=== PATIENT | female | born 2000 | race Caucasian/White ===

== ENCOUNTER → 2018-05-05 09:34 | Outpatient (CLI) | payer BC, SELFPAY ==
--- NOTE | 2018-05-05 09:51 | NM_ITS ---
NM gastric emptying study CLINICAL INDICATION: ITS.REASON: abdominal pain ORDERING PHYSICIAN: Trey Mejia MD PATIENT AGE: 17 years Comparison: None DOSE: 0.53 mCi technetium sulfur colloid in radiolabeled meal FINDINGS: The one half emptying time is prolonged at 180 minutes. Normal is 60 +/- 30 minutes. Images submitted show no obvious gastroesophageal reflux. At 60 minutes only 50% of the gastric contents had emptied. IMPRESSION: Delayed gastric emptying
== END ==
PROVIDERS: PCP Family Medicine; Visit Provider Surgery
DX: R10.9 Unspecified abdominal pain (principal)
CPT/HCPCS: 78264; A9541

== ENCOUNTER → 2018-07-31 10:48 | Outpatient (CLI) | payer BC, SELFPAY ==
[2018-07-31 11:24] LABS: Basophils # 0.1 K/mm3 (0-0.2); Basophils % 0.8 % (0.1-2.0); Eosinophils # 0.1 K/mm3 (0.0-0.4); Eosinophils % 1.5 % (0.1-12.0); Hematocrit 39.7 % (37.0-47.0); Lymphocytes # 1.7 K/mm3 (0.7-4.5); Lymphocytes % 28.3 % (10-50); Mean Corpuscular HGB Conc 32.8 g/dL (31.8-35.4); Mean Corpuscular Hemoglobin 29.5 pg (27.0-31.2); Mean Corpuscular Volume 90.1 fl (81-99); Mean Platelet Volume 7.4 fl (7.4-10.4); Monocytes # 0.3 K/mm3 (0.1-1.0); Monocytes % 4.7 % (1.7-9.3); Neutrophils # 3.9 K/mm3 (1.8-7.8); Neutrophils % 64.7 % (37.0-80.0); Platelet Count 261 K/mm3 (142-424); Red Blood Count 4.41 M/mm3 (4.20-5.40); White Blood Count 6.1 K/mm3 (4.5-13.0)
[2018-07-31 12:30] LABS: Alanine Aminotransferase 22 U/L (12-78); Albumin Level 4.1 gm/dL (3.4-5.0); Albumin/Globulin Ratio 1.3 (1.1-1.8); Alkaline Phosphatase 72 U/L (46-116); Anion Gap 11.7 mEq/L (5-15); Aspartate Amino Transferase 16 U/L (15-37); Bilirubin,Total 0.4 mg/dL (0.2-1.0); Blood Urea Nitrogen 9 mg/dL (7-18); Calcium 9.4 mg/dL (8.5-10.1); Carbon Dioxide 29 mmol/L (21.0-32.0); Chloride 105 mmol/L (98-107); Creatinine,Serum 0.72 mg/dL (0.55-1.02); Estimated Glomerular Filt Rate 104 ml/min (>60); GFR (African American) 126 ML/MIN (>60); Globulin 3.1 gm/dl (1.3-3.2); Glucose 89 mg/dL (74-106); Potassium 4.7 mmoL/L (3.5-5.1); Sodium 141 mmol/L (136-145); Total Protein,Serum 7.2 gm/dL (6.4-8.2)
[2018-07-31 15:38] LABS: HCG Qualitative, Serum Negative (Negative)
== END ==
PROVIDERS: Visit Provider Surgery
DX: K82.9 Disease of gallbladder, unspecified (principal)
CPT/HCPCS: 36415; 80053; 84703; 85025

== ENCOUNTER 2024-11-09 15:30 | Outpatient (CLI) | payer BC, SELFPAY ==
--- OUTSIDE RECORDS SUMMARY | 2024-11-10 10:08 | XMS_ITS | Clinical Summary ---
Author Organization [facility] Address [address] [place] [address] Care Team Providers Care Taxi Dancer Name Role Phone Hu Thomas MD Primary Care Provider [phone] Allergies No known active allergies Active Problems Problem Noted Date Diagnosed Date GERD (gastroesophageal reflux disease) Social History Tobacco Use Types Packs/Day Years Used Date Smoking Tobacco: Never Passive Smoke Exposure: Never Smokeless Tobacco: Never Tobacco Cessation:Counseling Given: No Alcohol Use Standard Drinks/Week Comments No 0 (1 standard drink = 0.6 oz pur e alcohol) Comments Unknown Sex and Gender Information Value Date Recorded Sex Assigned at Not on file Legal Sex Female 8:04 PM EDT Gender Identity Not on file Sexual Orientation Not on file Last Filed Vital Signs Vital Sign Reading Time Taken Comments Blood Pressure 112/70 02/06/2023 2:00 AM EDT Pulse 80 02/06/2023 2:00 AM EDT Temperature 37 C (98.6 F) 02/05/2023 10:26 PM EDT Respiratory Rate 17 02/06/2023 2:00 AM EDT Oxygen Saturation 97% 02/06/2023 2:00 AM EDT Inhaled Oxygen Concentration - - Weight 60.4 kg (133 lb 2.5 oz) 02/05/2023 6:30 P M EDT Height 165.1 cm (5' 5 ) 08/07/2020 9:18 AM EDT Body Mass Index 22.16 08/07/2020 9:18 AM EDT Plan of Treatment Health Maintenance Due Date Last Done Comments [facility]-Depression Screening 1998 [facility]-HIV Screening 1998 [facility]-Hepatitis C Screening 1998 [facility]-/Child/Adol SDOH Screenings 1998 [facility]-Varicella Vaccines (2 of 2 - 2-dose childhood series) 06/03/2008 03/11/2008 HPV Vaccines (3 - 2-dose series) 02/14/2010 10/14/2009, 08/14/2009 [facility]-IPV Vaccines (2 of 3 - 4-dose series) 03/16/2010 02/16/2010 [facility]- SDOH Screenings 2016 [facility]-Adult SDOH Screenings 2016 [facility]-Hepatitis B Vaccines (1 of 3 - 19+ 3-dose series) 2017 [facility]-Pap Smear 12/17/2019 [id number] Vaccine (3 - season) 2023 12/05/2020, 11/13/2020 [facility]-Influenza Vaccine (#1) 12/10/202401/20, 12/26/2020, 02/16/2010 [facility]-DTaP,Tdap,and Td Vaccines (3 - Td or Tdap) 11/06/2029 11/07/2019, 08/14/2009 [facility]-Zoster Vaccines (1 of 2) 2048 03/11/2008 [facility]-HIB Vaccines Aged Out No longer e ligible based on patient's age to complete this topic [facility]-Hepatitis A Vaccines Aged Out No longer eligible based on patient's age to complete this topic [facility]-Pneumococcal Vaccine: Pediatrics (0 to 5 Years) and At-Risk Patients (6 to 49 Years) Aged Out No longer eligible b ased on patient's age to complete this topic [facility]-Rotavirus Vaccines Aged Out No lo nger eligible based on patient's age to complete this [place] [address] [facility] [employer] Care Teams Taxi Dancer Relationship Specialty Start Date End Date Hu Thomas MD [address] [place] [address] PCP - General 08/22/20
[2024-11-12 21:09] LABS: Neisseria gonorrhoeae, NAA Negative (Negative)
[2024-11-13 12:16] LABS: Bacterial Vaginosis Associated 0
== END 2024-11-09 23:59 | disposition home or self-care (01) ==
LOC: LAB.DROPOF 11-10 10:07
PROVIDERS: PCP Obstetrics & Gynecology; Visit Provider Obstetrics & Gynecology
DX: N93.0 Postcoital and contact bleeding (principal); N92.3 Ovulation bleeding
CPT/HCPCS: 87491; 87591; 87798; 87801

== ENCOUNTER 2024-11-15 13:36 | Outpatient (CLI) | payer BC, SELFPAY ==
--- OUTSIDE RECORDS SUMMARY | 2024-11-15 13:39 | XMS_ITS | Clinical Summary ---
Author Organization [facility] Address [address] [place] [address] Care Team Providers Care Abattoir Manager Name Role Phone Hu Thomas MD Primary Care Provider Allergies No known active allergies Active Problems [...] 19+ 3-dose series) 2017 [facility]-Pap Smear 12/17/2019 [id number] Vaccine (3 - season) 2023 12/05/2020, 11/13/2020 [...] complete this [place] [address] [facility] [employer] Care Teams Abattoir Manager Relationship Specialty Start Date End Date Hu Thomas MD [address] [place] [address] PCP - General 08/22/20
--- NOTE | 2024-11-15 14:00 | US_ITS ---
PROCEDURE: US TRANSVAGINAL CLINICAL INDICATION: Abnormal vaginal bleeding COMPARISON: No exams were available for comparison FINDINGS: Transvaginal sonographic images of the pelvis were obtained. UTERUS: 8.1cm x 5.8 cmx 4.4cm retroverted with a combined endometrial thickness of 12.8mm. The endometrium has an heterogenous appearance. LEFT OVARY: 2.6 cmx2.0cmx1.5cm with a volume of 4.1ml. There are multiple small peripheral follicles giving the ovary a polycystic appearance. RIGHT OVARY: 4.0cmx 2.8 cm. There is a corpus luteum in the right ovary measuring 2.0 cm. There is a 2nd small solid-appearing area that measures 1.3 cm and is likely an old corpus luteum. Both ovaries are seen and appear normal. Doppler flow to both ovaries are seen. There is a small amount of fluid in the cul-de-sac. IMPRESSION: 1. Retroverted uterus normal in shape and size. The endometrium is thickened and heterogenous. 2. Both ovaries are seen and appear normal. The left ovary has a more polycystic appearance. 3. There is a small amount of fluid in the cul-de-sac Dictated by: Juan Eddy MD 11/15/2024 15:33 Juan Eddy MD in OV 11/15/2024 15:33
== END 2024-11-15 23:59 | disposition home or self-care (01) ==
LOC: RAD 13:37
PROVIDERS: PCP Family Medicine; Visit Provider Obstetrics & Gynecology
DX: N93.0 Postcoital and contact bleeding (principal); N92.3 Ovulation bleeding; N85.4 Malposition of uterus; R93.89 Abnormal findings on diagnostic imaging of other specified body structures
CPT/HCPCS: 76830